=== PATIENT | male | born 1985 | race Caucasian/White ===

== ENCOUNTER 2021-05-07 12:45 | Emergency (ER) | payer BC ==
--- NOTE | 2021-05-07 13:52 | EDM.PDOC ---
ED HPI GENERAL MEDICAL PROBLEM - General Chief Complaint: Upper Extremity Injury/Pain Stated Complaint: INJURY TO FINGERS Time Seen by Provider: 05/07/21 13:36 Source of Information: Reports: Patient History Limitations: Reports: No Limitations - History of Present Illness INITIAL COMMENTS - FREE TEXT/NARRATIVE: Patient is a 36-year-old male presents today for a right fourth digit finger injury. Patient had his finger slammed in door. States that the nailbed has avulsed up. He was able control the bleeding with some pressure. Denies any other injuries on the hand. Has not taken any medicine for the pain he came directly here. Right Upper Finger-Ring Pain Score (Numeric/FACES): 7 - Related Data Allergies Allergy/AdvReac Type Severity Reaction Status Date / Time Penicillins Allergy Cannot Verified 05/07/21 13:24 Remember Home Meds: Home Meds . [No Known Home Meds] 05/07/21 [History] Review of Systems - Review of Systems Review Of Systems: See Below Constitutional: Reports: No Symptoms Eyes: Reports: No Symptoms Ears: Reports: No Symptoms Nose: Reports: No Symptoms Mouth/Throat: Reports: No Symptoms Respiratory: Reports: No Symptoms Cardiovascular: Reports: No Symptoms GI/Abdominal: Reports: No Symptoms Genitourinary: Reports: No Symptoms Musculoskeletal: Reports: Hand Pain Skin: Reports: No Symptoms Neurological: Reports: No Symptoms Psychiatric: Reports: No Symptoms ED EXAM, GENERAL - Physical Exam Exam: See Below Exam Limited By: No Limitations General Appearance: Alert, WD/WN, No Apparent Distress Eye Exam: Bilateral Eye: EOMI, PERRL Nose: Normal Inspection Respiratory/Chest: No Respiratory Distress Cardiovascular: Normal Peripheral Pulses, Regular Rate, Rhythm Peripheral Pulses: 2+: Radial (R) Extremities: Normal Range of Motion. No: Normal Inspection (Avulsion of the right fourth digit nailbed) Neurological: Alert, Oriented, Normal Cognition, Normal Gait ED TRAUMA EXTREMITY PROCEDURES - Laceration/Wound Repair Right Digit - 4th (Ring) Lac/Wound Length In cm: 3 (below finger nail ) Appearance: Stellate, Clean Anesthetic Type: Local Local Anesthesia - Lidocaine (Xylocaine): 1% Plain Local Anesthetic Volume: 3cc Skin Prep: Chlorhexidine (Hibiciens) Saline Irrigation (cc's): 1,000 Exploration/Debridement/Repair: Wound Explored Closed With: Sutures Suture Size: 4-0 # of Sutures: 4 Course - Vital Signs Last Recorded V/S: Last Vital Signs Temp 97.8 F 05/07/21 13:25 Pulse 82 05/07/21 15:22 Resp 20 05/07/21 15:22 BP 143/66 H 05/07/21 15:22 Pulse Ox 97 05/07/21 15:22 - Orders/Labs/Meds Orders: Active Orders 24 hr Category Date Time Status Clindamycin Phosphate [Cleocin] 300 mg Med 05/07/21 15:23 Active Sodium Chloride 0.9% [Normal Saline] 50 ml IV ONETIME Medication Orders Clindamycin Phosphate 300 mg/ (Sodium Chloride) 52 mls @ 100 mls/hr IV ONETIME ONE Stop: 05/07/21 15:54 Meds: Medications Generic Name Dose Route Start Last Admin Trade Name Freq PRN Reason Stop Dose Admin Clindamycin Phosphate 300 mg/ 52 mls @ 100 mls/hr 05/07/21 15:23 Sodium Chloride IV 05/07/21 15:54 ONETIME ONE - Re-Assessments/Exams Free Text/Narrative Re-Assessment/Exam: 05/07/21 15:30 We repaired patient's finger with sutures without the nail down initially was approximated. Patient will follow with orthopedics tomorrow. Departure - Departure Time of Disposition: 15:32 Disposition: Home, Self-Care 01 Condition: Good Clinical Impression: Finger laceration - Discharge Information *PRESCRIPTION DRUG MONITORING PROGRAM REVIEWED*: Not Applicable *COPY OF PRESCRIPTION DRUG MONITORING REPORT IN PATIENT KIKE: Not Applicable Instructions: Laceration Care, Adult, [id number], Nail Bed Laceration Referrals: PCP,None [Primary Care Provider] - Forms: ED Department Discharge Additional Instructions: You were seen today after slamming her finger in a door and causing a laceration to your finger and also a fracture to the tip of your ring finger. We were able to repair it and sutured it down in place. You may lose your nail and it may take some time for the grow back. We will send you home on antibiotics. We want you to follow-up with our bone doctors tomorrow here in [place]. If you have any other concerns and symptoms please return to the ED immediately. The following information is given to patients seen in the emergency department who are being discharged to home. This information is to outline your options for follow-up care. We provide all patients seen in our emergency department with a follow-up referral. The need for follow-up, as well as the timing and circumstances, are variable depending upon the specifics of your emergency department visit. If you don't have a primary care physician on staff, we will provide you with a referral. We always advise you to contact your personal physician following an emergency department visit to inform them of the circumstance of the visit and for follow-up with them and/or the need for any referrals to a consulting specialist. The emergency department will also refer you to a specialist when appropriate. This referral assures that you have the opportunity for follow-up care with a specialist. All of these measure are taken in an effort to provide you with optimal care, which includes your follow-up. Under all circumstances we always encourage you to contact your private physician who remains a resource for coordinating your care. When calling for follow-up care, please make the office aware that this follow-up is from your recent emergency room visit. If for any reason you are refused follow-up, please contact the [facility] Emergency Department at and asked to speak to the emergency department charge nurse. Please follow up with your primary care physician. If you do not have a primary care physician, see below: [facility] - Orth[facility] Clinic [address], [address] [place] [address] Orthopedic Surgery [place] [phone] [address] [address], [address] Floor Sepsis Event Note (ED) - Evaluation Sepsis Screening Result: No Definite Risk - Focused Exam Vital Signs: Vital Signs Temp Pulse Resp BP Pulse Ox 05/07/21 15:22 82 20 143/66 H 97 05/07/21 13:25 97.8 F 80 18 167/106 H 98 - My Orders Last 24 Hours: My Active Orders 05/07/21 15:23 Clindamycin Phosphate [Cleocin] 300 mg Sodium Chloride 0.9% [Normal Saline] 50 ml IV ONETIME - Assessment/Plan Last 24 Hours: My Active Orders 05/07/21 15:23 Clindamycin Phosphate [Cleocin] 300 mg Sodium Chloride 0.9% [Normal Saline] 50 ml IV ONETIME Plan: Patient is a 36-year-old male who presents today for fourth digit nailbed pain. Patient had his finger slammed in a door the nail bed is avulsed up and there is a lot of clots underneath it. We will obtain x-rays clean area and reassess.
--- NOTE | 2021-05-07 14:37 | CR ---
Indication: Fourth digit nail injury with avulsion Comparison: None available. Technique: AP, Lateral, and Oblique views right 4th digit were obtained Findings: There is a comminuted fracture of the distal 4th phalanx. There is no other acute osseous abnormality. The joint spaces are grossly preserved. There is extensive soft tissue laceration of the 4th digit soft tissues. Impression: Open, comminuted fracture of the 4th distal phalanx. Dictated by Ramirez Malcolm MD @ 05/07/2021 2:35:44 PM (Electronically Signed)
[2021-05-07] MEDS ORDERED: Diphtheria,Pertussis(Acell),Tetanus Vaccine 0.5 ML Syringe IM ONE (15:35)
[2021-05-07] MEDS ORDERED: Clindamycin Phosphate in D5W 300 MG in Premix Bag 1 BAG IV ONE ×2 (15:45)
[2021-05-07] MEDS ORDERED: Acetaminophen/oxyCODONE 325-5 MG Tab PO ONE (15:49)
== END 2021-05-07 16:22 | disposition home or self-care (01) ==
LOC: MW.ED 12:45
DX: S61.214A Laceration without foreign body of right ring finger without damage to nail, initial encounter (principal); Z23 Encounter for immunization; Z88.0 Allergy status to penicillin; W23.0XXA Caught, crushed, jammed, or pinched between moving objects, initial encounter
CPT/HCPCS: 12002; 73130; 90471; 90715; 96365; 99283; A9270; J3490